=== PATIENT | male | born 1945 | race Caucasian/White ===

== ENCOUNTER 2019-04-30 17:37 | Emergency (ER) | payer MEDICARE, OTHER ==
--- NOTE | 2019-04-30 17:45 | ERPHSYRPT ---
- History of Present Illness Time Seen by Provider: 04/30/19 17:45 Source: patient Exam Limitations: no limitations Physician History: The patient is a 73-year-old male who presents with a chief complaint of hypertension. He reportedly has a blood pressure that runs in the 140s over 90s per his report but he hasn't checked his blood pressure and some time. He states that he decided to check his blood pressure today and was getting records in the 160s mmHg systolic and 180s mmHg systolic and decided to come to the emergency department for further evaluation and management. He is otherwise asymptomatic. He denies chest pain, shortness of breath, headache, blurred vision, changes in his visual acuity, abdominal pain, gross hematuria, back pain, syncope. He reportedly has been taking some ibuprofen intermittently for generalized aches and pains but hasn't taken any today. He endorsed that he drinks Diet Coke and he denies any additional over-the- counter medicine use to include Sudafed. Timing/Duration: today Associated Symptoms: denies symptoms, No nausea, No vomiting, No shortness of breath, No chest pain Allergies/Adverse Reactions: No Known Drug Allergies Allergy (Verified 04/30/19 18:02) Home Medications: No Reportable Medications [No Reported Medications] 04/30/19 [History] - Review of Systems Constitutional: No Symptoms Eyes: No Symptoms Ears, Nose, & Throat: No Symptoms Respiratory: No Symptoms Cardiac: Other (Elevated blood pressure reading) Abdominal/Gastrointestinal: No Symptoms Genitourinary Symptoms: No Symptoms Musculoskeletal: No Symptoms Skin: No Symptoms Neurological: No Symptoms Psychological: No Symptoms Endocrine: No Symptoms All Other Systems: Reviewed and Negative - Nursing Vital Signs Nursing Vital Signs: Initial Vital Signs Temperature 98.1 F 04/30/19 17:49 Pulse Rate 97 H 04/30/19 17:49 Respiratory Rate 14 04/30/19 17:49 Blood Pressure 184/90 04/30/19 17:49 O2 Sat by Pulse Oximetry 98 04/30/19 17:49 - Physical Exam General Appearance: no apparent distress, alert Eye Exam: PERRL/EOMI, No photophobia, No EOM palsy/anisocoria Ears, Nose, Throat Exam: normal ENT inspection, pharynx normal, No pharyngeal erythema, No tonsillar exudate Neck Exam: normal inspection, supple, No JVD Respiratory Exam: normal breath sounds, lungs clear, airway intact, No chest tenderness, No respiratory distress, No diminished breath sounds, No accessory muscle use Cardiovascular Exam: regular rate/rhythm, normal heart sounds, normal peripheral pulses, capillary refill <2 sec, other (Trace bilateral bilateral lower extremity edema), No murmur, No friction rub, No gallop Gastrointestinal/Abdomen Exam: soft, No tenderness, No distention, No mass, No pulsatile mass, No rebound, No bruit Back Exam: normal inspection, No vertebral tenderness Extremity Exam: normal inspection Neurologic Exam: alert, oriented x 3, cooperative, other (Seems anxious) Skin Exam: normal color SpO2 Interpretation: normal O2 Delivery: Room Air - Course Nursing assessment & vital signs reviewed: Yes - Progress Progress: unchanged Counseled pt/family regarding: diagnosis, need for follow-up - Departure Departure Disposition: Home Clinical Impression: Elevated blood pressure reading Condition: Stable Critical Care Time: No Referrals: [facility] [NON-STAFF PHY W/O PRIVILEGES] - Instructions: Blood Pressure Testing and Measurement, Checking Your Blood Pressure at Home Additional Instructions: Please follow-up with a primary care provider to have your blood pressure rechecked in the next 1-2 weeks. Please keep a log or your recordings and please check a resting blood pressure in the morning. Please avoid caffeine use. Plan of Treatment: Nontoxic in appearance. The patient presents with asymptomatic hypertension/ elevated blood pressure reading. His exam is relatively benign. The patient was provided reassurance and instructed to start taking daily resting blood pressure recordings, specifically in the morning upon awakening and keeping a log of these recordings to bring to a f/u appointment with a PCP. He is also instructed tocall is appointment to be seen I do in the next one to 2 weeks if able to have his blood pressure recording retake at the time of and have a primary care provider decide how to manage such recording. In the meantime, I instructed him to limit his caffeine use and to no longer take ibuprofen and to take [id number] Tylenol for generalized aches and pains. He agreed with verbally understands the discharge plan.
[2019-04-30 18:18] VITALS: BP 185/97; PULSE 80; O2SAT 96
== END 2019-04-30 18:18 | disposition home or self-care (01) ==
LOC: ED 17:37
DX: R03.0 Elevated blood-pressure reading, without diagnosis of hypertension (principal); I10 Essential (primary) hypertension
CPT/HCPCS: 99283

== ENCOUNTER 2020-05-01 23:06 | Observation (INO) | payer MEDICARE, OTHER ==
[2020-05-01] MEDS ORDERED: BABY ASPIRIN 81 MG CHEW PO ONE (23:11)
[2020-05-01] MEDS ORDERED: Sodium Chloride 0.9% 1000 ML 1,000 ML IV STA (23:11)
[2020-05-01] MEDS ORDERED: Zofran 4 MG/2 ML VIAL IV ONE (23:11)
--- NOTE | 2020-05-01 23:25 | ERPHSYRPT ---
- History of Present Illness Time Seen by Provider: 05/01/20 23:08 Source: patient Exam Limitations: no limitations Physician History: Patient is here for an episode of near syncope just prior to arrival. Patient states that he was walking around his house. He had sudden onset of lightheadedness, dizziness, flushing feeling. States he felt he was in a pass out. He sat down and had some improvement. He has no chest pain, fever, nausea, vomiting. No shortness of breath, COVID-19 exposures. Location: generalized Quality: light headedness Radiation: none Severity: moderate Duration: just BEATER LEAD Timing: suddenly Modifying factors/associated signs and symptoms: none tried, improved with rest Timing/Duration: today Severity: moderate Modifying Factors: Improves With: movement Associated Symptoms: other Allergies/Adverse Reactions: No Known Drug Allergies Allergy (Verified 05/01/20 23:29) Home Medications: Aspirin EC 81 mg [Ecotrin 81 mg] 81 mg PO DAILY 05/01/20 [History] Metoprolol Succinate 50 mg [Toprol Xl 50 MG] 50 mg PO HS 05/01/20 [History] Simvastatin 10 mg [Zocor 10MG] 10 mg PO QPM 05/01/20 [History] - Review of Systems Constitutional: Other (near syncope, feeling flushed), No Fever, No Chills Eyes: No Symptoms Ears, Nose, & Throat: No Symptoms Respiratory: No Cough, No Dyspnea Cardiac: No Chest Pain, No Edema, No Syncope Abdominal/Gastrointestinal: No Abdominal Pain, No Nausea, No Vomiting, No Diarrhea Genitourinary Symptoms: No Dysuria Musculoskeletal: No Back Pain, No Neck Pain Skin: No Rash Neurological: No Dizziness, No Focal Weakness, No Sensory Changes Psychological: No Symptoms Endocrine: No Symptoms All Other Systems: Reviewed and Negative - Past Medical History Pertinent Past Medical History: Yes GI Medical History: Hernia - Past Surgical History Past Surgical History: Yes Gastrointestinal: Hernia Repair - Social History Smoking Status: Never smoker Exposure to second hand smoke: No Drug Use: none Patient Lives Alone: Yes - Nursing Vital Signs Nursing Vital Signs: Initial Vital Signs Temperature 98.1 F 05/01/20 23:08 Pulse Rate 92 H 05/01/20 23:08 Respiratory Rate 16 05/01/20 23:08 Blood Pressure 181/90 05/01/20 23:08 O2 Sat by Pulse Oximetry 98 05/01/20 23:08 Pain Scale Pain Intensity 0 - Physical Exam General Appearance: no apparent distress, alert Eye Exam: PERRL/EOMI, eyes nml inspection Ears, Nose, Throat Exam: normal ENT inspection, TMs normal, pharynx normal, moist mucous membranes Neck Exam: normal inspection, non-tender, supple, full range of motion Respiratory Exam: normal breath sounds, lungs clear, No respiratory distress Cardiovascular Exam: regular rate/rhythm, normal heart sounds, normal peripheral pulses Gastrointestinal/Abdomen Exam: soft, normal bowel sounds, No tenderness, No mass Back Exam: normal inspection, normal range of motion, No CVA tenderness, No vertebral tenderness Extremity Exam: normal inspection, normal range of motion, pelvis stable Neurologic Exam: alert, oriented x 3, cooperative, normal mood/affect, nml cere bellar function, nml station & gait, sensation nml, No motor deficits Skin Exam: normal color, warm, dry, No rash Lymphatic Exam: No adenopathy SpO2 Interpretation: normal Comments: 05/01/20 23:24 Motor: There is no pronator drift of out-stretched arms. Muscle bulk and tone are normal. Strength is full bilaterally. Reflexes: Reflexes are 2+ and symmetric at the biceps, triceps, knees, and an kles. Plantar responses are flexor. Sensory: Light touch sense are intact in bilateral upper and lower extremities. There is no sign of neglect. Coordination: Rapid alternating movements are intact. There is no dysmetria on [id number] and [id number]. There are no abnormal or extraneous movements. Romberg is absent. Gait/Stance: Posture is normal. Gait is steady with normal steps, base, arm swing, and turning. Heel and toe walking are normal. Tandem gait is normal. - Course Nursing assessment & vital signs reviewed: Yes EKG Interpreted by Me: Sinus Rhythm Ordered Tests: Active Orders 24 hr Category Date Time Status Bedrest with BRP/BSC ROUTINE Activity 05/02/20 00:38 Active Rum Processing Operator STAT Care 05/01/20 23:12 Active Code Status Order ROUTINE Care 05/02/20 00:38 Active EKG-ER Only STAT Care 05/01/20 23:11 Active IV Care Q6H Care 05/02/20 00:38 Active IV Insertion STAT Care 05/01/20 23:11 Active Implement Chest Pain Pathway ROUTINE Care 05/02/20 00:[address] in Observation ROUTINE Care 05/02/20 00:38 Active Palomo Gallardo ROUTINE Care 05/02/20 00:38 Active Weight,Daily 0600 Care 05/02/20 00:38 Active House Regular Diet Diet 05/02/20 Breakfast Active CHEST 1 VIEW (PORTABLE) Stat Exams 05/01/20 23:11 Taken CBC W DIFF Stat Lab 05/01/20 23:15 Completed CMP Stat Lab 05/01/20 23:15 Completed LIPASE Stat Lab 05/01/20 23:15 Completed LIPID PROFILE AM.LAB Lab 05/02/20 04:00 Ordered NT PRO BNP Stat Lab 05/01/20 23:15 Completed POCT GLUCOSE Stat Lab 05/01/20 23:12 Completed TROPONIN Q3H Lab 05/01/20 23:15 Completed TROPONIN Q3H Lab 05/02/20 02:15 Ordered TROPONIN Q3H Lab 05/02/20 05:15 Ordered TROPONIN Q3H Lab 05/02/20 08:15 Ordered TROPONIN Q3H Lab 05/02/20 11:15 Ordered UA W/RFX UR CULTURE Stat Lab 05/01/20 23:48 Ordered EKG Q8HX2,QAMX3,PRN RT 05/02/20 00:38 Active Pulse Oximetry Q4H RT 05/02/20 00:38 Active Medication Summary Generic Name Dose Route Start Last Admin Trade Name Freq PRN Reason Stop Dose Admin Acetaminophen 650 mg 05/02/20 00:38 Tylenol 325 Mg PO 06/01/20 00:37 Q4H PRN PRN PAIN AND/OR FEVER Al Hydrox/Mg Hydrox/Simethicone 30 ml 05/02/20 00:38 Maalox Es 30 Ml Unit Dose PO 06/01/20 00:37 Q4H PRN PRN INDIGESTION Magnesium Hydroxide 30 - 60 ml 05/02/20 00:38 Milk Of Magnesia 30 Ml PO 06/01/20 00:37 QDP PRN CONSTIPATION Ondansetron HCl 4 mg 05/02/20 00:38 Zofran 4 Mg/2 Ml Vial IV 06/01/20 00:37 Q4H PRN PRN NAUSEA/VOMITING Senna/Docusate Sodium 2 udtab 05/02/20 00:38 Senokot-S Tablet PO 06/01/20 00:37 BID PRN PRN CONSTIPATION Discontinued Medications Generic Name Dose Route Start Last Admin Trade Name Aurelia PRN Reason Stop Dose Admin Aspirin 324 mg 05/01/20 23:11 05/01/20 23:38 Baby Aspirin 81 Mg Chew PO 05/01/20 23:12 324 mg STAT ONE Administration Aspirin Confirm 05/01/20 23:36 Baby Aspirin 81 Mg Chew Administered 05/01/20 23:37 Dose 324 mg .ROUTE .STK-MED ONE Sodium Chloride 1,000 mls @ 999 mls/hr 05/01/20 23:11 05/01/20 23:38 Sodium Chloride 0.9% 1000 Ml IV 05/02/20 00:11 999 mls/hr .Q1H1M STA Administration Sodium Chloride Confirm 05/01/20 23:36 Sodium Chloride 0.9% 1000 Ml Administered 05/01/20 23:37 Dose 1,000 mls @ ud .ROUTE .STK-MED ONE Ondansetron HCl 4 mg 05/01/20 23:11 05/01/20 23:38 Zofran 4 Mg/2 Ml Vial IV 05/01/20 23:12 4 mg STAT ONE Administration Ondansetron HCl Confirm 05/01/20 23:36 Zofran 4 Mg/2 Ml Vial Administered 05/01/20 23:37 Dose 4 mg .ROUTE .STK-MED ONE Lab/Rad Data: Laboratory Result Diagrams 05/01/20 23:15 05/01/20 23:15 Laboratory Results 05/01/20 05/01/20 05/01/20 Range/Units 23:15 23:15 23:15 WBC (4.0-10.5) K/mm3 RBC (4.1-5.6) M/mm3 Hgb (12.5-18.0) gm/dl Hct (42-50) % MCV (78-100) fl MCH (26-32) pg MCHC (32-36) g/dl RDW (11.5-14.0) % Plt Count (150-450) K/mm3 MPV (7.5-11.0) fl Gran % (36.0-66.0) % Eos # (Auto) (0-0.5) Absolute Lymphs (auto) (1.0-4.6) Absolute Monos (auto) (0.0-1.3) Lymphocytes % (24.0-44.0) % Monocytes % (0.0-12.0) % Eosinophils % (0.00-5.0) % Basophils % (0.0-0.4) % Absolute Granulocytes (1.4-6.9) Basophils # (0-0.4) Sodium 137 (137-145) mmol/L Potassium 4.0 (3.5-5.1) mmol/L Chloride 104 (98-107) mmol/L Carbon Dioxide 26 (22-30) mmol/L Anion Gap 11.8 (5-15) MEQ/L BUN 15 (9-20) mg/dL Creatinine 0.88 (0.66-1.25) mg/dL Estimated GFR > 60.0 ML/MIN Glucose 156 H (74-106) mg/dL POC Glucometer (74 to 106) mg/dL Calcium 9.1 (8.4-10.2) mg/dL Total Bilirubin 0.40 (0.2-1.3) mg/dL AST 27 (17-59) U/L ALT 18 (0-50) U/L Alkaline Phosphatase 78 (38-126) U/L Troponin I < 0.012 (0.000-0.034) ng/mL NT-Pro-B Natriuret Pep 121 (0-1800) pg/mL Serum Total Protein 7.4 (6.3-8.2) g/dL Albumin 4.3 (3.5-5.0) g/dL Lipase 80 (23-300) U/L 05/01/20 05/01/20 Range/Units 23:15 23:12 WBC 8.5 (4.0-10.5) K/mm3 RBC 4.13 (4.1-5.6) M/mm3 Hgb 12.9 (12.5-18.0) gm/dl Hct 40.8 L (42-50) % MCV 98.8 (78-100) fl MCH 31.2 (26-32) pg MCHC 31.6 L (32-36) g/dl RDW 12.9 (11.5-14.0) % Plt Count 200 (150-450) K/mm3 MPV 10.7 (7.5-11.0) fl Gran % 57.6 (36.0-66.0) % Eos # (Auto) 0.22 (0-0.5) Absolute Lymphs (auto) 2.57 (1.0-4.6) Absolute Monos (auto) 0.78 (0.0-1.3) Lymphocytes % 30.2 (24.0-44.0) % Monocytes % 9.2 (0.0-12.0) % Eosinophils % 2.6 (0.00-5.0) % Basophils % 0.4 (0.0-0.4) % Absolute Granulocytes 4.91 (1.4-6.9) Basophils # 0.03 (0-0.4) Sodium (137-145) mmol/L Potassium (3.5-5.1) mmol/L Chloride (98-107) mmol/L Carbon Dioxide (22-30) mmol/L Anion Gap (5-15) MEQ/L BUN (9-20) mg/dL Creatinine (0.66-1.25) mg/dL Estimated GFR ML/MIN Glucose (74-106) mg/dL POC Glucometer 120 H (74 to 106) mg/dL Calcium (8.4-10.2) mg/dL Total Bilirubin (0.2-1.3) mg/dL AST (17-59) U/L ALT (0-50) U/L Alkaline Phosphatase (38-126) U/L Troponin I (0.000-0.034) ng/mL NT-Pro-B Natriuret Pep (0-1800) pg/mL Serum Total Protein (6.3-8.2) g/dL Albumin (3.5-5.0) g/dL Lipase (23-300) U/L - Progress Progress: improved Progress Note: 05/01/20 23:24 Differential diagnosis includes STEMI, pneumonia, infection, fever, pancreatitis, electrolyte abnormality. -We will obtain basic labs, troponin, EKG, fluids, Zofran. 05/02/20 00:41 Lab work-up largely unremarkable. Patient will need be admitted for cardiac rule out, telemetry. Discussed with patient he states his understanding. Patient to be admitted. After reviewing labs, appropriate imaging, discussion with patient and family. We decided the patient should be admitted to the hospital. I called the inpatient team discussed history, physical and results with them in detail. We decided on the plan of action and admission to [facility]. We agreed on appropriate consults and who would call them. Discussed with : Jasper Counseled pt/family regarding: lab results, diagnosis, need for follow-up, rad results - Departure Departure Disposition: Observation Clinical Impression: Near syncope Condition: Stable Critical Care Time: No Referrals: OSVALDO GILL [Primary Care Provider] -
[2020-05-01 23:31] LABS: Absolute Neutrophil Ct (ANC) 4.91 (1.4-6.9); BASOPHIL % 0.4 % (0.0-0.4); Basophil (Absolute #) 0.03 (0-0.4); Eosinophil % 2.6 % (0.00-5.0); Eosinophil (Absolute #) 0.22 (0-0.5); Hematocrit 40.8 % (42-50); Hemoglobin 12.9 gm/dl (12.5-18.0); Lymphocyte (Absolute #) 2.57 (1.0-4.6); Lymphocytes % 30.2 % (24.0-44.0); Mean Cell Volume 98.8 fl (78-100); Mean Corpuscular Hemoglobin 31.2 pg (26-32); Mean Corpuscular Hgb Concent. 31.6 g/dl (32-36); Mean Platelet Volume 10.7 fl (7.5-11.0); Monocyte (Absolute #) 0.78 (0.0-1.3); Monocytes % 9.2 % (0.0-12.0); Neutrophil % 57.6 % (36.0-66.0); Platelet Count 200 K/mm3 (150-450); Red Blood Count 4.13 M/mm3 (4.1-5.6); Red Cell Distribution Width 12.9 % (11.5-14.0); White Blood Count 8.5 K/mm3 (4.0-10.5)
[2020-05-01] MEDS ORDERED: BABY ASPIRIN 81 MG CHEW ONE (23:36)
[2020-05-01] MEDS ORDERED: Zofran 4 MG/2 ML VIAL ONE (23:36)
[2020-05-01] MEDS ORDERED: Sodium Chloride 0.9% 1000 ML 1,000 ML ONE (23:36)
[2020-05-01 23:50] LABS: ALBUMIN 4.3 g/dL (3.5-5.0); ALKALINE PHOSPHATASE 78 U/L (38-126); ANION GAP 11.8 MEQ/L (5-15); BLOOD UREA NITROGEN 15 mg/dL (9-20); CHLORIDE 104 mmol/L (98-107); Calcium 9.1 mg/dL (8.4-10.2); Carbon Dioxide 26 mmol/L (22-30); Creatinine 1 0.88 mg/dL (0.66-1.25); EST GLOMERULAR FILTRATION RATE > 60.0 ML/MIN; Glucose 156 mg/dL (74-106); NT PRO BNP 121 pg/mL (0-1800); SGOT/AST 27 U/L (17-59); SGPT/ALT 18 U/L (0-50); SODIUM 137 mmol/L (137-145); Total Protein 7.4 g/dL (6.3-8.2)
[2020-05-02] MEDS ORDERED: MILK OF MAGNESIA 30 ML PO PRN (00:38)
[2020-05-02] MEDS ORDERED: TYLENOL 325 MG PO PRN (00:38)
[2020-05-02] MEDS ORDERED: Senokot-S Tablet PO PRN (00:38)
[2020-05-02] MEDS ORDERED: MAALOX ES 30 ML UNIT DOSE PO PRN (00:38)
[2020-05-02] MEDS ORDERED: Zofran 4 MG/2 ML VIAL IV PRN (00:38)
[2020-05-02 01:01] LABS: Appearance CLEAR (CLEAR); Bilirubin NEGATIVE (NEGATIVE); Blood NEGATIVE Ery/ul (0-5); Glucose NEGATIVE (NEGATIVE); Ketones NEGATIVE (NEGATIVE); Leukocyte Esterase NEGATIVE (NEGATIVE); Mucus SLIGHT /HPF (NEGATIVE); Nitrite NEGATIVE (NEGATIVE); Protein,Urine Dip NEGATIVE (Negative); RBC 0-2 /HPF (0-2); Specific Gravity 1.016 (1.005-1.025); Urobilinogen NEGATIVE mg/dL (0-1)
[2020-05-02 01:02] LABS: Non-Squamous Epithelial Cells RARE /HPF (FEW)
[2020-05-02 07:54] VITALS: BP 134/67; PULSE 88; O2SAT 95
--- NOTE | 2020-05-02 07:58 | XRAY ---
Indication: Near syncope. Comparison: None Portable chest demonstrates normal heart and lungs. Bony thorax intact with mild degenerative changes.
--- NOTE | 2020-05-02 10:23 | PCM.SSS ---
History of Present Illness - Chief Complaint Chief Complaint: deconditioning r/t CHF, near syncope History of Present Illness: is a 74 year old male who developed dizziness and feeling faint suddenly last night, he sushil to turn off the lights to go to bed and had a dizzy/faint sensation which he has never had before. He has not had any chest pain, no shortness of breath, no syncope, he sat down and symptoms resolved after he called for ambulance. He has no complaints at all today, feels normal and well. He has no numbness, tingling, weakness or paresthesias. Has no prior cardiac history or history of CVA/TIA etc. he does take a baby aspirin daily in addition to his bp and cholesterol meds. he would like to go home today. - Review of Systems Constitutional: No Fever, No Chills Cardiac: No Chest Pain, No Syncope Abdominal/Gastrointestinal: No Abdominal Pain, No Nausea, No Vomiting, No Diarrhea Genitourinary Symptoms: No Dysuria Neurological: Dizziness, No Focal Weakness, No Gait Changes, No Headache, No Paralysis, No Parasthesia, No Sensory Changes, No Speech Changes Psychological: No Symptoms All Other Systems: Reviewed and Negative Medications & Allergies Home Medications: Home Medication List Aspirin EC 81 mg [Ecotrin 81 mg] 81 mg PO DAILY 05/01/20 [History Confirmed 05/02/20] Metoprolol Succinate 50 mg [Toprol Xl 50 MG] 50 mg PO HS 05/01/20 [History Confirmed 05/02/20] Simvastatin 10 mg [Zocor 10MG] 10 mg PO QPM 05/01/20 [History Confirmed 05/02/20] Allergies/Adverse Reactions: Allergies Allergy/AdvReac Type Severity Reaction Status Date / Time No Known Drug Allergies Allergy Verified 05/02/20 01:57 - Past Medical History Past Medical History: Yes Neurological History: No Pertinent History ENT History: No Pertinent History Cardiac History: High Cholesterol, Hypertension Respiratory History: No Pertinent History Endocrine Medical History: No Pertinent History Musculoskelatal History: No Pertinent History GI Medical History: Hernia History: No Pertinent History Pyscho-Social History: No Pertinent History Male Reproductive Disorders: No Pertinent History Comment: skin cancer on the top of one of ears and 5 spots removed on face - Past Surgical History Past Surgical History: Yes Neuro Surgical History: No Pertinent History Cardiac History: No Pertinent History Respiratory Surgery: No Pertinent History GI Surgical History: Hernia Repair Genitourinary Surgical Hx: No Pertinent History Musculskeletal Surgical Hx: No Pertinent History Male Surgical History: No Pertinent History Other Surgical History: skin cancer removed from face - Social History Smoking Status: Never smoker Exposure to second hand smoke: No Alcohol: None Drug Use: none - Physical Exam Vital Signs: Vital Signs - 24 hr Temp Pulse Resp BP Pulse Ox 05/02/20 07:53 99.5 F 88 16 134/67 95 05/02/20 04:00 20 05/02/20 02:20 98.5 F 106 H 20 184/91 96 05/02/20 01:50 98.5 F 106 H 20 184/91 96 05/02/20 01:00 96 H 18 170/77 96 05/02/20 00:07 93 H 20 170/81 98 05/01/20 23:08 98.1 F 92 H 16 181/90 98 General Appearance: no apparent distress, alert Neurologic Exam: alert, oriented x 3, cooperative, normal mood/affect, nml cerebellar function, nml station & gait, sensation nml, No motor deficits Eye Exam: PERRL/EOMI, eyes nml inspection Respiratory Exam: normal breath sounds, lungs clear, No respiratory distress Cardiovascular Exam: regular rate/rhythm, normal heart sounds, normal peripheral pulses Gastrointestinal/Abdomen Exam: soft, normal bowel sounds, No tenderness, No mass Extremity Exam: normal inspection, normal range of motion, pelvis stable Skin Exam: normal color, warm, dry, No rash Results - Labs Lab/Micro Results: Lab Results-Last 24 Hours 05/01/20 05/01/20 05/01/20 Range/Units 23:12 23:15 23:15 WBC 8.5 (4.0-10.5) K/mm3 RBC 4.13 (4.1-5.6) M/mm3 Hgb 12.9 (12.5-18.0) gm/dl Hct 40.8 L (42-50) % MCV 98.8 (78-100) fl MCH 31.2 (26-32) pg MCHC 31.6 L (32-36) g/dl RDW 12.9 (11.5-14.0) % Plt Count 200 (150-450) K/mm3 MPV 10.7 (7.5-11.0) fl Gran % 57.6 (36.0-66.0) % Eos # (Auto) 0.22 (0-0.5) Absolute Lymphs (auto) 2.57 (1.0-4.6) Absolute Monos (auto) 0.78 (0.0-1.3) Lymphocytes % 30.2 (24.0-44.0) % Monocytes % 9.2 (0.0-12.0) % Eosinophils % 2.6 (0.00-5.0) % Basophils % 0.4 (0.0-0.4) % Absolute Granulocytes 4.91 (1.4-6.9) Basophils # 0.03 (0-0.4) Sodium 137 (137-145) mmol/L Potassium 4.0 (3.5-5.1) mmol/L Chloride 104 (98-107) mmol/L Carbon Dioxide 26 (22-30) mmol/L Anion Gap 11.8 (5-15) MEQ/L BUN 15 (9-20) mg/dL Creatinine 0.88 (0.66-1.25) mg/dL Estimated GFR > 60.0 ML/MIN Glucose 156 H (74-106) mg/dL POC Glucometer 120 H (74 to 106) mg/dL Calcium 9.1 (8.4-10.2) mg/dL Total Bilirubin 0.40 (0.2-1.3) mg/dL AST 27 (17-59) U/L ALT 18 (0-50) U/L Alkaline Phosphatase 78 (38-126) U/L Troponin I (0.000-0.034) ng/mL NT-Pro-B Natriuret Pep 121 (0-1800) pg/mL Serum Total Protein 7.4 (6.3-8.2) g/dL Albumin 4.3 (3.5-5.0) g/dL Triglycerides (30-150) mg/dL Cholesterol (50-200) mg/dL LDL Cholesterol (30-100) mg/dL HDL Cholesterol (40-60) mg/dL Heart Disease Risk Ratio Lipase (23-300) U/L Urine Color (YELLOW) Urine Appearance (CLEAR) Urine pH (5-6) Ur Specific [place] (1.005-1.025) Urine Protein (Negative) Urine Ketones (NEGATIVE) Urine Blood (0-5) Minh/ul Urine Nitrite (NEGATIVE) Urine Bilirubin (NEGATIVE) Urine Urobilinogen (0-1) mg/dL Ur Leukocyte Esterase (NEGATIVE) Urine WBC (Auto) (0-5) /HPF Urine RBC (Auto) (0-2) /HPF U Epithel Cells (Auto) (FEW) /HPF Urine Bacteria (Auto) (NEGATIVE) /HPF U Non-Squamous Epi Cells (FEW) /HPF Urine Mucus (Auto) (NEGATIVE) /HPF Urine Culture Reflexed (NO) Urine Glucose (NEGATIVE) mg/dL 05/01/20 05/01/20 05/02/20 Range/Units 23:15 23:15 00:35 WBC (4.0-10.5) K/mm3 RBC (4.1-5.6) M/mm3 Hgb (12.5-18.0) gm/dl Hct (42-50) % MCV (78-100) fl MCH (26-32) pg MCHC (32-36) g/dl RDW (11.5-14.0) % Plt Count (150-450) K/mm3 MPV (7.5-11.0) fl Gran % (36.0-66.0) % Eos # (Auto) (0-0.5) Absolute Lymphs (auto) (1.0-4.6) Absolute Monos (auto) (0.0-1.3) Lymphocytes % (24.0-44.0) % Monocytes % (0.0-12.0) % Eosinophils % (0.00-5.0) % Basophils % (0.0-0.4) % Absolute Granulocytes (1.4-6.9) Basophils # (0-0.4) Sodium (137-145) mmol/L Potassium (3.5-5.1) mmol/L Chloride (98-107) mmol/L Carbon Dioxide (22-30) mmol/L Anion Gap (5-15) MEQ/L BUN (9-20) mg/dL Creatinine (0.66-1.25) mg/dL Estimated GFR ML/MIN Glucose (74-106) mg/dL POC Glucometer (74 to 106) mg/dL Calcium (8.4-10.2) mg/dL Total Bilirubin (0.2-1.3) mg/dL AST (17-59) U/L ALT (0-50) U/L Alkaline Phosphatase (38-126) U/L Troponin I < 0.012 (0.000-0.034) ng/mL NT-Pro-B Natriuret Pep (0-1800) pg/mL Serum Total Protein (6.3-8.2) g/dL Albumin (3.5-5.0) g/dL Triglycerides (30-150) mg/dL Cholesterol (50-200) mg/dL LDL Cholesterol (30-100) mg/dL HDL Cholesterol (40-60) mg/dL Heart Disease Risk Ratio Lipase 80 (23-300) U/L Urine Color YELLOW (YELLOW) Urine Appearance CLEAR (CLEAR) Urine pH 5.0 (5-6) Ur Specific [place] 1.016 (1.005-1.025) Urine Protein NEGATIVE (Negative) Urine Ketones NEGATIVE (NEGATIVE) Urine Blood NEGATIVE (0-5) Minh/ul Urine Nitrite NEGATIVE (NEGATIVE) Urine Bilirubin NEGATIVE (NEGATIVE) Urine Urobilinogen NEGATIVE (0-1) mg/dL Ur Leukocyte Esterase NEGATIVE (NEGATIVE) Urine WBC (Auto) NONE (0-5) /HPF Urine RBC (Auto) 0-2 (0-2) /HPF U Epithel Cells (Auto) NONE (FEW) /HPF Urine Bacteria (Auto) NONE (NEGATIVE) /HPF U Non-Squamous Epi Cells RARE (FEW) /HPF Urine Mucus (Auto) SLIGHT (NEGATIVE) /HPF Urine Culture Reflexed NO (NO) Urine Glucose NEGATIVE (NEGATIVE) mg/dL 05/02/20 05/02/20 05/02/20 Range/Units 02:20 05:30 05:30 WBC (4.0-10.5) K/mm3 RBC (4.1-5.6) M/mm3 Hgb (12.5-18.0) gm/dl Hct (42-50) % MCV (78-100) fl MCH (26-32) pg MCHC (32-36) g/dl RDW (11.5-14.0) % Plt Count (150-450) K/mm3 MPV (7.5-11.0) fl Gran % (36.0-66.0) % Eos # (Auto) (0-0.5) Absolute Lymphs (auto) (1.0-4.6) Absolute Monos (auto) (0.0-1.3) Lymphocytes % (24.0-44.0) % Monocytes % (0.0-12.0) % Eosinophils % (0.00-5.0) % Basophils % (0.0-0.4) % Absolute Granulocytes (1.4-6.9) Basophils # (0-0.4) Sodium (137-145) mmol/L Potassium (3.5-5.1) mmol/L Chloride (98-107) mmol/L Carbon Dioxide (22-30) mmol/L Anion Gap (5-15) MEQ/L BUN (9-20) mg/dL Creatinine (0.66-1.25) mg/dL Estimated GFR ML/MIN Glucose (74-106) mg/dL POC Glucometer (74 to 106) mg/dL Calcium (8.4-10.2) mg/dL Total Bilirubin (0.2-1.3) mg/dL AST (17-59) U/L ALT (0-50) U/L Alkaline Phosphatase (38-126) U/L Troponin I < 0.012 < 0.012 (0.000-0.034) ng/mL NT-Pro-B Natriuret Pep (0-1800) pg/mL Serum Total Protein (6.3-8.2) g/dL Albumin (3.5-5.0) g/dL Triglycerides 126 (30-150) mg/dL Cholesterol 126 (50-200) mg/dL LDL Cholesterol 67 (30-100) mg/dL HDL Cholesterol 41 (40-60) mg/dL Heart Disease Risk Ratio 3.0 Lipase (23-300) U/L Urine Color (YELLOW) Urine Appearance (CLEAR) Urine pH (5-6) Ur Specific [place] (1.005-1.025) Urine Protein (Negative) Urine Ketones (NEGATIVE) Urine Blood (0-5) [place]ul Urine Nitrite (NEGATIVE) Urine Bilirubin (NEGATIVE) Urine Urobilinogen (0-1) mg/dL Ur Leukocyte Esterase (NEGATIVE) Urine WBC (Auto) (0-5) /HPF Urine RBC (Auto) (0-2) /HPF U Epithel Cells (Auto) (FEW) /HPF Urine Bacteria (Auto) (NEGATIVE) /HPF U Non-Squamous Epi Cells (FEW) /HPF Urine Mucus (Auto) (NEGATIVE) /HPF Urine Culture Reflexed (NO) Urine Glucose (NEGATIVE) mg/dL 05/02/20 Range/Units 08:20 WBC (4.0-10.5) K/mm3 RBC (4.1-5.6) M/mm3 Hgb (12.5-18.0) gm/dl Hct (42-50) % MCV (78-100) fl MCH (26-32) pg MCHC (32-36) g/dl RDW (11.5-14.0) % Plt Count (150-450) K/mm3 MPV (7.5-11.0) fl Gran % (36.0-66.0) % Eos # (Auto) (0-0.5) Absolute Lymphs (auto) (1.0-4.6) Absolute Monos (auto) (0.0-1.3) Lymphocytes % (24.0-44.0) % Monocytes % (0.0-12.0) % Eosinophils % (0.00-5.0) % Basophils % (0.0-0.4) % Absolute Granulocytes (1.4-6.9) Basophils # (0-0.4) Sodium (137-145) mmol/L Potassium (3.5-5.1) mmol/L Chloride (98-107) mmol/L Carbon Dioxide (22-30) mmol/L Anion Gap (5-15) MEQ/L BUN (9-20) mg/dL Creatinine (0.66-1.25) mg/dL Estimated GFR ML/MIN Glucose (74-106) mg/dL POC Glucometer (74 to 106) mg/dL Calcium (8.4-10.2) mg/dL Total Bilirubin (0.2-1.3) mg/dL AST (17-59) U/L ALT (0-50) U/L Alkaline Phosphatase (38-126) U/L Troponin I < 0.012 (0.000-0.034) ng/mL NT-Pro-B Natriuret Pep (0-1800) pg/mL Serum Total Protein (6.3-8.2) g/dL Albumin (3.5-5.0) g/dL Triglycerides (30-150) mg/dL Cholesterol (50-200) mg/dL LDL Cholesterol (30-100) mg/dL HDL Cholesterol (40-60) mg/dL Heart Disease Risk Ratio Lipase (23-300) U/L Urine Color (YELLOW) Urine Appearance (CLEAR) Urine pH (5-6) Ur Specific [place] (1.005-1.025) Urine Protein (Negative) Urine Ketones (NEGATIVE) Urine Blood (0-5) Minh/ul Urine Nitrite (NEGATIVE) Urine Bilirubin (NEGATIVE) Urine Urobilinogen (0-1) mg/dL Ur Leukocyte Esterase (NEGATIVE) Urine WBC (Auto) (0-5) /HPF Urine RBC (Auto) (0-2) /HPF U Epithel Cells (Auto) (FEW) /HPF Urine Bacteria (Auto) (NEGATIVE) /HPF U Non-Squamous Epi Cells (FEW) /HPF Urine Mucus (Auto) (NEGATIVE) /HPF Urine Culture Reflexed (NO) Urine Glucose (NEGATIVE) mg/dL - Radiology Impressions Radiology Exams & Impressions: Radiology Procedures Category Date Time Status CHEST 1 VIEW (PORTABLE) Stat Exams 05/01/20 23:11 Completed - Other Procedures and Tests Respiratory Therapy 05/03/20 05:00 EKG ONCE 05/04/20 05:00 EKG ONCE 05/05/20 05:00 EKG ONCE Assessment/Plan (1) Near syncope Current Visit: Yes Status: Acute Assessment & Plan: IN ruled out, nothing abnormal on neuro exam and has no symptoms since admission. continue current meds including 81mg asa and will f/u with Dr Gill PCP in the next week (2) Elevated blood pressure reading Current Visit: No Status: Acute Assessment & Plan: resolved, bp well controlled currently Code(s): R03.0 - ELEVATED BLOOD-PRESSURE READING, W/O DIAGNOSIS OF HTN Hospital Summary - Vitals & Intake/Output Vital Signs: Vital Signs Temperature 99.5 F 05/02/20 07:53 Pulse Rate 88 05/02/20 07:53 Respiratory Rate 16 05/02/20 07:53 Blood Pressure 134/67 05/02/20 07:53 O2 Sat by Pulse Oximetry 95 05/02/20 07:53 Intake & Output: Intake & Output 04/29/20 04/30/20 05/01/20 05/02/20 11:59 11:59 11:59 11:59 Output Total 375 Balance -375 Weight 108.8 kg - Lab Result Diagrams: 05/01/20 23:15 05/01/20 23:15 Lab Results-Last 24 Hrs: Lab Results-Last 24 Hours 05/01/20 05/01/20 05/01/20 Range/Units 23:12 23:15 23:15 WBC 8.5 (4.0-10.5) K/mm3 RBC 4.13 (4.1-5.6) M/mm3 Hgb 12.9 (12.5-18.0) gm/dl Hct 40.8 L (42-50) % MCV 98.8 (78-100) fl MCH 31.2 (26-32) pg MCHC 31.6 L (32-36) g/dl RDW 12.9 (11.5-14.0) % Plt Count 200 (150-450) K/mm3 MPV 10.7 (7.5-11.0) fl Gran % 57.6 (36.0-66.0) % Eos # (Auto) 0.22 (0-0.5) Absolute Lymphs (auto) 2.57 (1.0-4.6) Absolute Monos (auto) 0.78 (0.0-1.3) Lymphocytes % 30.2 (24.0-44.0) % Monocytes % 9.2 (0.0-12.0) % Eosinophils % 2.6 (0.00-5.0) % Basophils % 0.4 (0.0-0.4) % Absolute Granulocytes 4.91 (1.4-6.9) Basophils # 0.03 (0-0.4) Sodium 137 (137-145) mmol/L Potassium 4.0 (3.5-5.1) mmol/L Chloride 104 (98-107) mmol/L Carbon Dioxide 26 (22-30) mmol/L Anion Gap 11.8 (5-15) MEQ/L BUN 15 (9-20) mg/dL Creatinine 0.88 (0.66-1.25) mg/dL Estimated GFR > 60.0 ML/MIN Glucose 156 H (74-106) mg/dL POC Glucometer 120 H (74 to 106) mg/dL Calcium 9.1 (8.4-10.2) mg/dL Total Bilirubin 0.40 (0.2-1.3) mg/dL AST 27 (17-59) U/L ALT 18 (0-50) U/L Alkaline Phosphatase 78 (38-126) U/L Troponin I (0.000-0.034) ng/mL NT-Pro-B Natriuret Pep 121 (0-1800) pg/mL Serum Total Protein 7.4 (6.3-8.2) g/dL Albumin 4.3 (3.5-5.0) g/dL Triglycerides (30-150) mg/dL Cholesterol (50-200) mg/dL LDL Cholesterol (30-100) mg/dL HDL Cholesterol (40-60) mg/dL Heart Disease Risk Ratio Lipase (23-300) U/L Urine Color (YELLOW) Urine Appearance (CLEAR) Urine pH (5-6) Ur Specific [place] (1.005-1.025) Urine Protein (Negative) Urine Ketones (NEGATIVE) Urine Blood (0-5) Minh/ul Urine Nitrite (NEGATIVE) Urine Bilirubin (NEGATIVE) Urine Urobilinogen (0-1) mg/dL Ur Leukocyte Esterase (NEGATIVE) Urine WBC (Auto) (0-5) /HPF Urine RBC (Auto) (0-2) /HPF U Epithel Cells (Auto) (FEW) /HPF Urine Bacteria (Auto) (NEGATIVE) /HPF U Non-Squamous Epi Cells (FEW) /HPF Urine Mucus (Auto) (NEGATIVE) /HPF Urine Culture Reflexed (NO) Urine Glucose (NEGATIVE) mg/dL 05/01/20 05/01/20 05/02/20 Range/Units 23:15 23:15 00:35 WBC (4.0-10.5) K/mm3 RBC (4.1-5.6) M/mm3 Hgb (12.5-18.0) gm/dl Hct (42-50) % MCV (78-100) fl MCH (26-32) pg MCHC (32-36) g/dl RDW (11.5-14.0) % Plt Count (150-450) K/mm3 MPV (7.5-11.0) fl Gran % (36.0-66.0) % Eos # (Auto) (0-0.5) Absolute Lymphs (auto) (1.0-4.6) Absolute Monos (auto) (0.0-1.3) Lymphocytes % (24.0-44.0) % Monocytes % (0.0-12.0) % Eosinophils % (0.00-5.0) % Basophils % (0.0-0.4) % Absolute Granulocytes (1.4-6.9) Basophils # (0-0.4) Sodium (137-145) mmol/L Potassium (3.5-5.1) mmol/L Chloride (98-107) mmol/L Carbon Dioxide (22-30) mmol/L Anion Gap (5-15) MEQ/L BUN (9-20) mg/dL Creatinine (0.66-1.25) mg/dL Estimated GFR ML/MIN Glucose (74-106) mg/dL POC Glucometer (74 to 106) mg/dL Calcium (8.4-10.2) mg/dL Total Bilirubin (0.2-1.3) mg/dL AST (17-59) U/L ALT (0-50) U/L Alkaline Phosphatase (38-126) U/L Troponin I < 0.012 (0.000-0.034) ng/mL NT-Pro-B Natriuret Pep (0-1800) pg/mL Serum Total Protein (6.3-8.2) g/dL Albumin (3.5-5.0) g/dL Triglycerides (30-150) mg/dL Cholesterol (50-200) mg/dL LDL Cholesterol (30-100) mg/dL HDL Cholesterol (40-60) mg/dL Heart Disease Risk Ratio Lipase 80 (23-300) U/L Urine Color YELLOW (YELLOW) Urine Appearance CLEAR (CLEAR) Urine pH 5.0 (5-6) Ur Specific [place] 1.016 (1.005-1.025) Urine Protein NEGATIVE (Negative) Urine Ketones NEGATIVE (NEGATIVE) Urine Blood NEGATIVE (0-5) Minh/ul Urine Nitrite NEGATIVE (NEGATIVE) Urine Bilirubin NEGATIVE (NEGATIVE) Urine Urobilinogen NEGATIVE (0-1) mg/dL Ur Leukocyte Esterase NEGATIVE (NEGATIVE) Urine WBC (Auto) NONE (0-5) /HPF Urine RBC (Auto) 0-2 (0-2) /HPF U Epithel Cells (Auto) NONE (FEW) /HPF Urine Bacteria (Auto) NONE (NEGATIVE) /HPF U Non-Squamous Epi Cells RARE (FEW) /HPF Urine Mucus (Auto) SLIGHT (NEGATIVE) /HPF Urine Culture Reflexed NO (NO) Urine Glucose NEGATIVE (NEGATIVE) mg/dL 05/02/20 05/02/20 05/02/20 Range/Units 02:20 05:30 05:30 WBC (4.0-10.5) K/mm3 RBC (4.1-5.6) M/mm3 Hgb (12.5-18.0) gm/dl Hct (42-50) % MCV (78-100) fl MCH (26-32) pg MCHC (32-36) g/dl RDW (11.5-14.0) % Plt Count (150-450) K/mm3 MPV (7.5-11.0) fl Gran % (36.0-66.0) % Eos # (Auto) (0-0.5) Absolute Lymphs (auto) (1.0-4.6) Absolute Monos (auto) (0.0-1.3) Lymphocytes % (24.0-44.0) % Monocytes % (0.0-12.0) % Eosinophils % (0.00-5.0) % Basophils % (0.0-0.4) % Absolute Granulocytes (1.4-6.9) Basophils # (0-0.4) Sodium (137-145) mmol/L Potassium (3.5-5.1) mmol/L Chloride (98-107) mmol/L Carbon Dioxide (22-30) mmol/L Anion Gap (5-15) MEQ/L BUN (9-20) mg/dL Creatinine (0.66-1.25) mg/dL Estimated GFR ML/MIN Glucose (74-106) mg/dL POC Glucometer (74 to 106) mg/dL Calcium (8.4-10.2) mg/dL Total Bilirubin (0.2-1.3) mg/dL AST (17-59) U/L ALT (0-50) U/L Alkaline Phosphatase (38-126) U/L Troponin I < 0.012 < 0.012 (0.000-0.034) ng/mL NT-Pro-B Natriuret Pep (0-1800) pg/mL Serum Total Protein (6.3-8.2) g/dL Albumin (3.5-5.0) g/dL Triglycerides 126 (30-150) mg/dL Cholesterol 126 (50-200) mg/dL LDL Cholesterol 67 (30-100) mg/dL HDL Cholesterol 41 (40-60) mg/dL Heart Disease Risk Ratio 3.0 Lipase (23-300) U/L Urine Color (YELLOW) Urine Appearance (CLEAR) Urine pH (5-6) Ur Specific [place] (1.005-1.025) Urine Protein (Negative) Urine Ketones (NEGATIVE) Urine Blood (0-5) Minh/ul Urine Nitrite (NEGATIVE) Urine Bilirubin (NEGATIVE) Urine Urobilinogen (0-1) mg/dL Ur Leukocyte Esterase (NEGATIVE) Urine WBC (Auto) (0-5) /HPF Urine RBC (Auto) (0-2) /HPF U Epithel Cells (Auto) (FEW) /HPF Urine Bacteria (Auto) (NEGATIVE) /HPF U Non-Squamous Epi Cells (FEW) /HPF Urine Mucus (Auto) (NEGATIVE) /HPF Urine Culture Reflexed (NO) Urine Glucose (NEGATIVE) mg/dL 05/02/20 Range/Units 08:20 WBC (4.0-10.5) K/mm3 RBC (4.1-5.6) M/mm3 Hgb (12.5-18.0) gm/dl Hct (42-50) % MCV (78-100) fl MCH (26-32) pg MCHC (32-36) g/dl RDW (11.5-14.0) % Plt Count (150-450) K/mm3 MPV (7.5-11.0) fl Gran % (36.0-66.0) % Eos # (Auto) (0-0.5) Absolute Lymphs (auto) (1.0-4.6) Absolute Monos (auto) (0.0-1.3) Lymphocytes % (24.0-44.0) % Monocytes % (0.0-12.0) % Eosinophils % (0.00-5.0) % Basophils % (0.0-0.4) % Absolute Granulocytes (1.4-6.9) Basophils # (0-0.4) Sodium (137-145) mmol/L Potassium (3.5-5.1) mmol/L Chloride (98-107) mmol/L Carbon Dioxide (22-30) mmol/L Anion Gap (5-15) MEQ/L BUN (9-20) mg/dL Creatinine (0.66-1.25) mg/dL Estimated GFR ML/MIN Glucose (74-106) mg/dL POC Glucometer (74 to 106) mg/dL Calcium (8.4-10.2) mg/dL Total Bilirubin (0.2-1.3) mg/dL AST (17-59) U/L ALT (0-50) U/L Alkaline Phosphatase (38-126) U/L Troponin I < 0.012 (0.000-0.034) ng/mL NT-Pro-B Natriuret Pep (0-1800) pg/mL Serum Total Protein (6.3-8.2) g/dL Albumin (3.5-5.0) g/dL Triglycerides (30-150) mg/dL Cholesterol (50-200) mg/dL LDL Cholesterol (30-100) mg/dL HDL Cholesterol (40-60) mg/dL Heart Disease Risk Ratio Lipase (23-300) U/L Urine Color (YELLOW) Urine Appearance (CLEAR) Urine pH (5-6) Ur Specific [place] (1.005-1.025) Urine Protein (Negative) Urine Ketones (NEGATIVE) Urine Blood (0-5) Minh/ul Urine Nitrite (NEGATIVE) Urine Bilirubin (NEGATIVE) Urine Urobilinogen (0-1) mg/dL Ur Leukocyte Esterase (NEGATIVE) Urine WBC (Auto) (0-5) /HPF Urine RBC (Auto) (0-2) /HPF U Epithel Cells (Auto) (FEW) /HPF Urine Bacteria (Auto) (NEGATIVE) /HPF U Non-Squamous Epi Cells (FEW) /HPF Urine Mucus (Auto) (NEGATIVE) /HPF Urine Culture Reflexed (NO) Urine Glucose (NEGATIVE) mg/dL - Radiology Exams Ordered Rad Exams-Entire Visit: Radiology Procedures Category Date Time Status CHEST 1 VIEW (PORTABLE) Stat Exams 05/01/20 23:11 Completed - Procedures and Test Procedures and Tests throughout Hospitalization: Therapy Orders & Screens 05/02/20 07:00 EKG ONCE Comment: Diagnosis: Deconditioning r/t CHF, cellulitis 05/03/20 05:00 EKG ONCE Comment: Diagnosis: Deconditioning r/t CHF, cellulitis 05/04/20 05:00 EKG ONCE Comment: Diagnosis: Deconditioning r/t CHF, cellulitis 05/05/20 05:00 EKG ONCE Comment: Diagnosis: Deconditioning r/t CHF, cellulitis - Discharge Disposition: Home, Self-Care Condition: Stable Prescriptions: Continue Simvastatin 10 mg [Zocor 10MG] 10 mg PO QPM Metoprolol Succinate 50 mg [Toprol Xl 50 MG] 50 mg PO HS Aspirin EC 81 mg [Ecotrin 81 mg] 81 mg PO DAILY Follow up with: OSVALDO GILL [Primary Care Provider] -
[2020-05-02] MEDS ORDERED: ECOTRIN 81 MG PO SCH (12:00)
[2020-05-02] MEDS ORDERED: Zocor 10MG PO SCH (22:00)
[2020-05-02] MEDS ORDERED: Toprol Xl 50 MG PO SCH (22:00)
== END 2020-05-02 11:30 | disposition home or self-care (01) ==
LOC: ED 23:06 → MED SURG 05-02 01:44
PROVIDERS: ADMIT Family Medicine; ATTEND Family Medicine
DX: R55 Syncope and collapse (principal); R03.0 Elevated blood-pressure reading, without diagnosis of hypertension; Z79.899 Other long term (current) drug therapy; E78.00 Pure hypercholesterolemia, unspecified; I10 Essential (primary) hypertension
CPT/HCPCS: 36000; 36415; 71045; 80053; 80061; 81001; 82947; 83690; 83721; 83880; 84484; 85025; 93005; 93041; 93268; 96360; 96374; 99285; G0378; J2405; A9270-GY

== ENCOUNTER 2022-03-12 10:05 | Emergency (ER) | payer MEDICARE, OTHER ==
--- NOTE | 2022-03-12 10:10 | ERPHSYRPT ---
- History of Present Illness Time Seen by Provider: 03/12/22 10:10 Source: patient, family Exam Limitations: no limitations Physician History: This is a 76-year-old right-handed white male who was stung by a wasp yesterday. Redness swelling and tenderness is present in the dorsal aspect of his right hand. Patient has not taken any medication to help improve his symptoms. Patient is not diabetic. Patient has a history of hyperlipidemia and hypertension. Timing/Duration: yesterday Quality: itchy, painful Severity: mild Location: hands (Dorsal aspect right hand) Possible Causes: insect sting Modifying Factors: Improves With: antihistamine (Topical) Associated Symptoms: denies symptoms Allergies/Adverse Reactions: No Known Drug Allergies Allergy (Verified 03/12/22 10:11) Home Medications: Aspirin EC 81 mg [Ecotrin 81 mg] 81 mg PO DAILY 05/01/20 [History] Metoprolol Succinate 50 mg [Toprol Xl 50 MG] 50 mg PO HS 05/01/20 [History] Simvastatin 10 mg [Zocor 10MG] 10 mg PO QPM 05/01/20 [History] Hx Tetanus, Diphtheria Vaccination/Date Given: No Hx Influenza Vaccination/Date Given: Yes Hx Pneumococcal Vaccination/Date Given: No Travel Risk - International Travel Have you traveled outside of the country in past 3 weeks: No - Coronavirus Screening Are you exhibiting any of the following symptoms?: No Close contact with a COVID-19 positive Pt in past 14-21 Days: No - Review of Systems Constitutional: No Symptoms Eyes: No Symptoms Ears, Nose, & Throat: No Symptoms Respiratory: No Symptoms Cardiac: No Symptoms Abdominal/Gastrointestinal: No Symptoms Genitourinary Symptoms: No Symptoms Musculoskeletal: No Symptoms Skin: Other (Mild redness swelling tenderness dorsal aspect right hand) Neurological: No Symptoms Psychological: No Symptoms Endocrine: No Symptoms Hematologic/Lymphatic: No Symptoms Immunological/Allergic: No Symptoms All Other Systems: Reviewed and Negative - Past Medical History Pertinent Past Medical History: Yes Neurological History: No Pertinent History ENT History: No Pertinent History Cardiac History: High Cholesterol, Hypertension Respiratory History: No Pertinent History Endocrine Medical History: No Pertinent History Musculoskeletal History: No Pertinent History GI Medical History: Hernia History: No Pertinent History Psycho-Social History: No Pertinent History Male Reproductive Disorders: No Pertinent History Other Medical History: skin cancer on the top of one of ears and 5 spots removed on face - Past Surgical History Past Surgical History: Yes Neuro Surgical History: No Pertinent History Cardiac: No Pertinent History Respiratory: No Pertinent History Gastrointestinal: Hernia Repair Genitourinary: No Pertinent History Musculoskeletal: No Pertinent History Male Surgical History: No Pertinent History Other Surgical History: skin cancer removed from face - Social History Smoking Status: Never smoker Exposure to second hand smoke: No Drug Use: none Patient Lives Alone: Yes - Nursing Vital Signs Nursing Vital Signs: Initial Vital Signs Temperature 97.2 F 03/12/22 10:16 Pulse Rate 63 03/12/22 10:16 Respiratory Rate 18 03/12/22 10:16 Blood Pressure 151/77 03/12/22 10:16 O2 Sat by Pulse Oximetry 100 03/12/22 10:16 Pain Scale Pain Intensity 4 - Physical Exam General Appearance: no apparent distress, alert, anxiety Eye Exam: PERRL/EOMI, eyes nml inspection Ears, Nose, Throat Exam: normal ENT inspection, moist mucous membranes Neck Exam: normal inspection, non-tender, supple, full range of motion Respiratory Exam: normal breath sounds, lungs clear, airway intact, No chest tenderness, No respiratory distress Cardiovascular Exam: regular rate/rhythm, normal heart sounds, normal peripheral pulses Gastrointestinal/Abdomen Exam: soft, normal bowel sounds, No tenderness Rectal Exam: not done Back Exam: normal inspection, normal range of motion, No CVA tenderness, No vertebral tenderness Extremity Exam: normal range of motion, pelvis stable, inflammation (Dorsal aspect right hand), swelling (Dorsal aspect right hand), tenderness (Dorsal aspect right hand), other (Mild redness dorsal aspect right hand) Ordered Tests: Medication Summary Generic Name Dose Route Start Last Admin Trade Name Aurelia PRN Reason Stop Dose Admin Methylprednisolone Sodium 0 mg 03/12/22 10:58 Succinate 125 mg/ Sterile IM 03/12/22 10:59 Water 2 ml STAT ONE Diphenhydramine HCl 50 mg 03/12/22 10:58 Diphenhydramine Hcl 25 Mg Capsule PO 03/12/22 10:59 STAT ONE Famotidine 40 mg 03/12/22 10:58 Famotidine 20 Mg Tablet PO 03/12/22 10:59 STAT ONE - Progress Progress: unchanged Counseled pt/family regarding: diagnosis, need for follow-up - Departure Departure Disposition: Home Clinical Impression: Allergic reaction, Wasp sting Condition: Stable Critical Care Time: No Referrals: OSVALDO GILL MD [Primary Care Provider] - Follow up/PCP as directed Additional Instructions: Keep site clean daily. Continue Benadryl 25 mg orally 3 times a day for the next 4 days. Take your medication as prescribed. Prescriptions: Prednisone 10 mg [Deltasone 10 mg] 10 mg PO TID #12 tablet Cephalexin Mh 500 mg [Keflex 500 mg] 500 mg PO TID #15 cap Famotidine 20 mg [Pepcid 20 MG] 20 mg PO DAILY #5 tablet
[2022-03-12] MEDS ORDERED: solu-MEDROL 125 MG, Sterile H2O 10 ml 2 ML IM ONE ×2 (10:58)
[2022-03-12] MEDS ORDERED: BENADRYL 25 MG CAPSULE PO ONE (10:58)
[2022-03-12] MEDS ORDERED: Pepcid 20 MG PO ONE (10:58)
[2022-03-12] MEDS ORDERED: Pepcid 20 MG ONE (11:07)
[2022-03-12] MEDS ORDERED: Sterile H2O 10 ml IJ ONE (11:07)
[2022-03-12] MEDS ORDERED: BENADRYL 25 MG CAPSULE ONE (11:08)
[2022-03-12] MEDS ORDERED: solu-MEDROL ONE (11:08)
[2022-03-12 11:59] VITALS: BP 158/74; PULSE 76; O2SAT 97
== END 2022-03-12 11:59 | disposition home or self-care (01) ==
LOC: ED 10:05
DX: T63.461A Toxic effect of venom of wasps, accidental (unintentional), initial encounter (principal); M79.89 Other specified soft tissue disorders; S60.561A Insect bite (nonvenomous) of right hand, initial encounter; E78.5 Hyperlipidemia, unspecified; I10 Essential (primary) hypertension; Z79.899 Other long term (current) drug therapy; Z79.52 Long term (current) use of systemic steroids
CPT/HCPCS: 96372; 99283; J2930; A9270-GY

== ENCOUNTER 2023-08-20 09:21 | Emergency (ER) | payer MEDICARE, OTHER ==
[2023-08-20 09:41] VITALS: TEMP 96.4
[2023-08-20] MEDS ORDERED: Zofran 4 MG/2 ML VIAL ONE (09:46)
[2023-08-20] MEDS: Zofran 4 MG/2 ML VIAL IV ONE (09:47)
--- NOTE | 2023-08-20 09:49 | ERPHSYRPT ---
- History of Present Illness Time Seen by Provider: 08/20/23 09:42 Source: patient Exam Limitations: no limitations Patient Subjective Stated Complaint: C/O "light headedness," nausea, and leg aches for a few days. Denies fever, abdominal pain, falls, vomiting, diarrhea, c onstipation, dizziness. Triage Nursing Assessment: Patient ambulated back to ER with a slow gait. He is alert and oriented X 4 but can become confused/uncertain when asked specific questions about events prior to today such as "what did you eat for dinner last night." Patient is drowsy, falling asleep at times during the assessment. SILVA WNL. Skin tone normal. BLE with some noted edema. Physician History: C/O "light headedness," nausea, and leg aches for a few days. Denies fever, abdominal pain, falls, vomiting, diarrhea, constipation, dizziness. confused/uncertain when asked specific questions about events prior to today such as "what did you eat for dinner last night." Patient is drowsy, falling asleep at times during the assessment. Patient is 77-year-old male with significant past medical history of hypertension hyperlipidemia coronary artery disease came to the emergency room with nausea and leg aches for few days. During nursing evaluation patient was drowsy and confused. On further interview patient says that he is not feeling well unable to answer further question. Patient drove by himself to the emergency room. Timing/Duration: day(s) (2-3 days) Associated Symptoms: nausea, weakness, other (leg cramps) Allergies/Adverse Reactions: No Known Drug Allergies Allergy (Verified 08/20/23 09:29) Home Medications: Aspirin EC 81 mg [Ecotrin 81 mg] 81 mg PO DAILY 05/01/20 [History] Metoprolol Succinate 50 mg [Toprol Xl 50 MG] 50 mg PO HS 05/01/20 [History] Simvastatin 10 mg [Zocor 10MG] 10 mg PO QPM 05/01/20 [History] Ferrous Sulfate [Iron] 325 mg PO DAILY 08/20/23 [History] Furosemide 20 mg [Lasix 20 mg] 20 mg PO DAILY PRN 08/20/23 [History] Losartan/Hydrochlorothiazide [Losartan-Hctz 100-12.5 mg Tab] 1 tab PO DAILY 08/20/23 [History] Naproxen 500 mg [Naprosyn 500 MG] 500 mg PO BID PRN 08/20/23 [History] Hx Tetanus, Diphtheria Vaccination/Date Given: Yes Hx Influenza Vaccination/Date Given: Yes Hx Pneumococcal Vaccination/Date Given: Yes Immunizations Up to Date: Yes Travel Risk - International Travel Have you traveled outside of the country in past 3 weeks: No - Emerging Infectious Disease Are you exhibiting symptoms associated with any current EIDs: Yes Symptoms: Headaches/Body Aches/ - Review of Systems Constitutional: Lethargy, Malaise, Weakness, No Fever, No Chills Eyes: No Symptoms Ears, Nose, & Throat: No Symptoms Respiratory: No Cough, No Dyspnea Cardiac: No Chest Pain, No Edema, No Syncope Abdominal/Gastrointestinal: Nausea, No Abdominal Pain, No Vomiting, No Diarrhea Genitourinary Symptoms: No Dysuria Musculoskeletal: No Back Pain, No Neck Pain Skin: No Symptoms, No Rash Neurological: Lethargy, No Dizziness, No Focal Weakness, No Sensory Changes Psychological: No Symptoms Endocrine: No Symptoms Hematologic/Lymphatic: No Symptoms Immunological/Allergic: No Symptoms All Other Systems: Reviewed and Negative - Past Medical History Pertinent Past Medical History: Yes Neurological History: No Pertinent History ENT History: No Pertinent History Cardiac History: High Cholesterol, Hypertension Respiratory History: No Pertinent History Endocrine Medical History: No Pertinent History Musculoskeletal History: No Pertinent History GI Medical History: GERD, Hernia History: No Pertinent History Psycho-Social History: No Pertinent History Male Reproductive Disorders: No Pertinent History Other Medical History: skin cancer on the top of one of ears and 5 spots removed on face - Past Surgical History Past Surgical History: Yes Neuro Surgical History: No Pertinent History Cardiac: No Pertinent History Respiratory: No Pertinent History Gastrointestinal: Hernia Repair Genitourinary: No Pertinent History Musculoskeletal: No Pertinent History Male Surgical History: No Pertinent History Other Surgical History: skin cancer removed from face - Social History Smoking Status: Never smoker Exposure to second hand smoke: No Drug Use: none Patient Lives Alone: Yes - Nursing Vital Signs Nursing Vital Signs: Initial Vital Signs Temperature 96.4 F 08/20/23 09:30 Pulse Rate 67 08/20/23 09:30 Respiratory Rate 24 08/20/23 09:30 Blood Pressure 128/61 08/20/23 09:30 O2 Sat by Pulse Oximetry 98 08/20/23 09:30 Pain Scale Pain Intensity 3 - Physical Exam General Appearance: mild distress, alert Eye Exam: PERRL/EOMI, eyes nml inspection Ears, Nose, Throat Exam: normal ENT inspection, TMs normal, pharynx normal, moist mucous membranes Neck Exam: normal inspection, non-tender, supple, full range of motion Respiratory Exam: normal breath sounds, lungs clear, No respiratory distress Cardiovascular Exam: regular rate/rhythm, normal heart sounds, normal peripheral pulses Gastrointestinal/Abdomen Exam: soft, normal bowel sounds, No tenderness, No mass Back Exam: normal inspection, normal range of motion, No CVA tenderness, No vertebral tenderness Extremity Exam: normal inspection, normal range of motion, pelvis stable Neurologic Exam: alert, oriented x 3, cooperative, normal mood/affect, nml cerebellar function, nml station & gait, sensation nml, confusion, No motor deficits Skin Exam: normal color, warm, dry, No rash Lymphatic Exam: No adenopathy SpO2: 98 Ordered Tests: Active Orders 24 hr Category Date Time Status EKG-ER Only STAT Care 08/20/23 09:59 Active NPO (ED) STAT Care 08/20/23 10:26 Active HEAD WITHOUT CONTRAST [CT] Stat Exams 08/20/23 10:26 Completed AMYLASE Stat Lab 08/20/23 09:43 Completed BMP Stat Lab 08/20/23 11:45 Completed BNPII [NT PRO BNPII] Stat Lab 08/20/23 09:43 Completed CBC W DIFF Stat Lab 08/20/23 09:43 Completed CMP Stat Lab 08/20/23 09:43 Completed LIPASE Stat Lab 08/20/23 09:43 Completed Lactic Acid Stat Lab 08/20/23 09:55 Completed Lactic Acid Stat Lab 08/20/23 12:01 Received TROPONIN Stat Lab 08/20/23 09:43 Completed UA W/RFX UR CULTURE Stat Lab 08/20/23 10:11 Completed Medication Summary Discontinued Medications Generic Name Dose Route Start Last Admin Trade Name Freq PRN Reason Stop Dose Admin Sodium Chloride 1,000 mls @ 999 mls/hr 08/20/23 09:59 08/20/23 11:04 Sodium Chloride 0.9% 1000 Ml IV 08/20/23 10:59 Infused .Q1H1M STA Infusion Sodium Chloride Confirm 08/20/23 10:01 Sodium Chloride 0.9% 1000 Ml Administered 08/20/23 10:02 Dose 1,000 mls @ ud .ROUTE .STK-MED ONE Dextrose/Sodium Chloride 1,000 mls @ 999 mls/hr 08/20/23 11:00 08/20/23 12:08 Dextrose 5%-Ns Iv Solution 1000 Ml IV 09/19/23 10:59 Not Given .Q1H1M JAMES Dextrose/Sodium Chloride Confirm 08/20/23 10:53 Dextrose 5%-Ns Iv Solution 1000 Ml Administered 08/20/23 10:54 Dose 1,000 mls @ ud IV .STK-MED ONE Ondansetron HCl 4 mg 08/20/23 09:46 08/20/23 09:47 Ondansetron Hcl 4 Mg/2 Ml Vial IV 08/20/23 09:47 4 mg STAT ONE Administration Ondansetron HCl Confirm 08/20/23 09:46 Ondansetron Hcl 4 Mg/2 Ml Vial Administered 08/20/23 09:47 Dose 4 mg .ROUTE .STK-MED ONE Lab/Rad Data: Laboratory Result Diagrams 08/20/23 09:43 08/20/23 11:45 Laboratory Results 08/20/23 08/20/23 08/20/23 Range/Units 11:45 10:11 10:00 WBC (4.0-10.5) x10^3/uL RBC (4.1-5.6) x10^6/uL Hgb (12.5-18.0) g/dL Hct (42-50) % MCV (78-100) fL MCH (26-32) pg MCHC (32-36) g/dL RDW (11.5-14.0) % Plt Count (150-450) x10^3/uL MPV (7.5-11.0) fL Gran % (36.0-66.0) % Immature Gran % (Auto) (0.00-0.4) % Nucleat RBC Rel Count (0.00-0.1) % Eos # (Auto) (0-0.5) x10^3/uL Immature Gran # (Auto) (0.00-0.03) x10^3u/L Absolute Lymphs (auto) (1.0-4.6) x10^3/uL Absolute Monos (auto) (0.0-1.3) x10^3/uL Absolute Nucleated RBC (0.00-0.01) x10^3u/L Lymphocytes % (24.0-44.0) % Monocytes % (0.0-12.0) % Eosinophils % (0.00-5.0) % Basophils % (0.0-0.4) % Absolute Granulocytes (1.4-6.9) x10^3/uL Basophils # (0-0.4) x10^3/uL Sodium 117 L* (135-145) mmol/L Potassium 3.9 (3.5-5.1) mmol/L Chloride 91 L (98-107) mmol/L Carbon Dioxide 18 L (22-30) mmol/L Anion Gap 12.7 (5-15) MEQ/L BUN 15 (9-20) mg/dL Creatinine 0.95 (0.66-1.25) mg/dL Estimated GFR 81.4 ML/MIN Glucose 241 H (74-106) mg/dL Lactic Acid (0.4-2.0) Calcium 8.1 L (8.4-10.2) mg/dL Total Bilirubin (0.2-1.3) mg/dL AST (17-59) U/L ALT (0-50) U/L Alkaline Phosphatase (38-126) U/L Troponin I (0.000-0.033) ng/mL NT-Pro-B Natriuret Pep (<300) pg/mL Serum Total Protein (6.3-8.2) g/dL Albumin (3.5-5.0) g/dL Amylase (30-110) U/L Lipase (23-300) U/L Urine Color Yellow (Yellow) Urine Appearance Clear (Clear) Urine pH 7.5 (4.6-8.0) Ur Specific [place] 1.010 (1.005-1.030) Urine Protein Negative (Negative) Urine Glucose (UA) Negative (Negative) mg/dL Urine Ketones Negative (Negative) Urine Blood Negative (Negative) Urine Nitrite Negative (Negative) Urine Bilirubin Negative (Negative) Urine Urobilinogen 0.2 (0.2) mg/dL Ur Leukocyte Esterase Negative (Negative) U Hyaline Cast (Auto) NONE SEEN (0-2) /LPF Urine Microscopic RBC 0-2 (0-5) /HPF Urine Microscopic WBC 0-2 (0-5) /HPF Ur Epithelial Cells None Seen (None Seen) /HPF Urine Bacteria None Seen (None Seen) /HPF Urine Culture Reflexed NO (NO) Influenza Type A Ag NEGATIVE (NEGATIVE) Influenza Type B Ag NEGATIVE (NEGATIVE) RSV (PCR) NEGATIVE (NEGATIVE) SARS-CoV-2 (PCR) NEGATIVE (NEGATIVE) 08/20/23 08/20/23 08/20/23 Range/Units 09:55 09:43 09:43 WBC (4.0-10.5) x10^3/uL RBC (4.1-5.6) x10^6/uL Hgb (12.5-18.0) g/dL Hct (42-50) % MCV (78-100) fL MCH (26-32) pg MCHC (32-36) g/dL RDW (11.5-14.0) % Plt Count (150-450) x10^3/uL MPV (7.5-11.0) fL Gran % (36.0-66.0) % Immature Gran % (Auto) (0.00-0.4) % Nucleat RBC Rel Count (0.00-0.1) % Eos # (Auto) (0-0.5) x10^3/uL Immature Gran # (Auto) (0.00-0.03) x10^3u/L Absolute Lymphs (auto) (1.0-4.6) x10^3/uL Absolute Monos (auto) (0.0-1.3) x10^3/uL Absolute Nucleated RBC (0.00-0.01) x10^3u/L Lymphocytes % (24.0-44.0) % Monocytes % (0.0-12.0) % Eosinophils % (0.00-5.0) % Basophils % (0.0-0.4) % Absolute Granulocytes (1.4-6.9) x10^3/uL Basophils # (0-0.4) x10^3/uL Sodium (135-145) mmol/L Potassium (3.5-5.1) mmol/L Chloride (98-107) mmol/L Carbon Dioxide (22-30) mmol/L Anion Gap (5-15) MEQ/L BUN (9-20) mg/dL Creatinine (0.66-1.25) mg/dL Estimated GFR ML/MIN Glucose (74-106) mg/dL Lactic Acid 1.9 (0.4-2.0) Calcium (8.4-10.2) mg/dL Total Bilirubin (0.2-1.3) mg/dL AST (17-59) U/L ALT (0-50) U/L Alkaline Phosphatase (38-126) U/L Troponin I < 0.012 (0.000-0.033) ng/mL NT-Pro-B Natriuret Pep 277 (<300) pg/mL Serum Total Protein (6.3-8.2) g/dL Albumin (3.5-5.0) g/dL Amylase (30-110) U/L Lipase (23-300) U/L Urine Color (Yellow) Urine Appearance (Clear) Urine pH (4.6-8.0) Ur Specific [place] (1.005-1.030) Urine Protein (Negative) Urine Glucose (UA) (Negative) mg/dL Urine Ketones (Negative) Urine Blood (Negative) Urine Nitrite (Negative) Urine Bilirubin (Negative) Urine Urobilinogen (0.2) mg/dL Ur Leukocyte Esterase (Negative) U Hyaline Cast (Auto) (0-2) /LPF Urine Microscopic RBC (0-5) /HPF Urine Microscopic WBC (0-5) /HPF Ur Epithelial Cells (None Seen) /HPF Urine Bacteria (None Seen) /HPF Urine Culture Reflexed (NO) Influenza Type A Ag (NEGATIVE) Influenza Type B Ag (NEGATIVE) RSV (PCR) (NEGATIVE) SARS-CoV-2 (PCR) (NEGATIVE) 08/20/23 08/20/23 Range/Units 09:43 09:43 WBC 7.6 (4.0-10.5) x10^3/uL RBC 3.90 L (4.1-5.6) x10^6/uL Hgb 12.6 (12.5-18.0) g/dL Hct 34.3 L (42-50) % MCV 87.9 (78-100) fL MCH 32.3 H (26-32) pg MCHC 36.7 H (32-36) g/dL RDW 11.4 L (11.5-14.0) % Plt Count 240 (150-450) x10^3/uL MPV 9.8 (7.5-11.0) fL Gran % 62.6 (36.0-66.0) % Immature Gran % (Auto) 0.7 H (0.00-0.4) % Nucleat RBC Rel Count 0.0 (0.00-0.1) % Eos # (Auto) 0.04 (0-0.5) x10^3/uL Immature Gran # (Auto) 0.05 H (0.00-0.03) x10^3u/L Absolute Lymphs (auto) 1.87 (1.0-4.6) x10^3/uL Absolute Monos (auto) 0.84 (0.0-1.3) x10^3/uL Absolute Nucleated RBC 0.00 (0.00-0.01) x10^3u/L Lymphocytes % 24.7 (24.0-44.0) % Monocytes % 11.1 (0.0-12.0) % Eosinophils % 0.5 (0.00-5.0) % Basophils % 0.4 (0.0-0.4) % Absolute Granulocytes 4.74 (1.4-6.9) x10^3/uL Basophils # 0.03 (0-0.4) x10^3/uL Sodium 117 L* (135-145) mmol/L Potassium 4.1 (3.5-5.1) mmol/L Chloride 87 L (98-107) mmol/L Carbon Dioxide 20 L (22-30) mmol/L Anion Gap 10.5 (5-15) MEQ/L BUN 17 (9-20) mg/dL Creatinine 1.03 (0.66-1.25) mg/dL Estimated GFR 73.9 ML/MIN Glucose 112 H (74-106) mg/dL Lactic Acid (0.4-2.0) Calcium 9.1 (8.4-10.2) mg/dL Total Bilirubin 1.60 H (0.2-1.3) mg/dL AST 47 (17-59) U/L ALT 23 (0-50) U/L Alkaline Phosphatase 74 (38-126) U/L Troponin I (0.000-0.033) ng/mL NT-Pro-B Natriuret Pep (<300) pg/mL Serum Total Protein 7.3 (6.3-8.2) g/dL Albumin 4.1 (3.5-5.0) g/dL Amylase 78 (30-110) U/L Lipase 74 (23-300) U/L Urine Color (Yellow) Urine Appearance (Clear) Urine pH (4.6-8.0) Ur Specific [place] (1.005-1.030) Urine Protein (Negative) Urine Glucose (UA) (Negative) mg/dL Urine Ketones (Negative) Urine Blood (Negative) Urine Nitrite (Negative) Urine Bilirubin (Negative) Urine Urobilinogen (0.2) mg/dL Ur Leukocyte Esterase (Negative) U Hyaline Cast (Auto) (0-2) /LPF Urine Microscopic RBC (0-5) /HPF Urine Microscopic WBC (0-5) /HPF Ur Epithelial Cells (None Seen) /HPF Urine Bacteria (None Seen) /HPF Urine Culture Reflexed (NO) Influenza Type A Ag (NEGATIVE) Influenza Type B Ag (NEGATIVE) RSV (PCR) (NEGATIVE) SARS-CoV-2 (PCR) (NEGATIVE) - Progress Progress: unchanged Progress Note: 08/20/23 12:42 Patient Na repeated level is 117 08/20/23 12:46 Dr Mojica (nephrology) consulted. He accepted patient for consult. Will Transfer patient to [facility] under hospitalist service once bed available Counseled pt/family regarding: lab results, diagnosis, need for follow-up, rad results Medical Desision Making - Independent Historian Additional History obtained from: Family - External Record(s) Reviewed Records reviewed as a part of evaluation & management: Inpatient, Clinic - Discussion of managment Care discussed with:: hospitalist (advised transfer for further nephrology service) - Diagnostic Testing Diagnostic test were ordered, analyzed, and reviewed by me: Yes - Departure Departure Disposition: Transfer ([facility]) Clinical Impression: Hyponatremia with normal extracellular fluid volume Condition: Fair Critical Care Time: Yes Critical Care Time(excluding separately billable procedures): Critical 30-74 mins Referrals: OSVALDO GILL MD [Primary Care Provider] - Follow up/PCP as directed
[2023-08-20 10:00] LABS: Absolute Neutrophil Ct (ANC) 4.74 x10^3/uL (1.4-6.9); BASOPHIL % 0.4 % (0.0-0.4); Basophil (Absolute #) 0.03 x10^3/uL (0-0.4); Eosinophil % 0.5 % (0.00-5.0); Eosinophil (Absolute #) 0.04 x10^3/uL (0-0.5); Hematocrit 34.3 % (42-50); Hemoglobin 12.6 g/dL (12.5-18.0); IMMATURE GRAN # 0.05 x10^3u/L (0.00-0.03); IMMATURE GRAN % 0.7 % (0.00-0.4); Lymphocyte (Absolute #) 1.87 x10^3/uL (1.0-4.6); Lymphocytes % 24.7 % (24.0-44.0); Mean Cell Volume 87.9 fL (78-100); Mean Corpuscular Hemoglobin 32.3 pg (26-32); Mean Corpuscular Hgb Concent. 36.7 g/dL (32-36); Mean Platelet Volume 9.8 fL (7.5-11.0); Monocyte (Absolute #) 0.84 x10^3/uL (0.0-1.3); Monocytes % 11.1 % (0.0-12.0); Neutrophil % 62.6 % (36.0-66.0); Platelet Count 240 x10^3/uL (150-450); Red Cell Distribution Width 11.4 % (11.5-14.0); White Blood Count 7.6 x10^3/uL (4.0-10.5)
[2023-08-20] MEDS ORDERED: Sodium Chloride 0.9% 1000 ML 1,000 ML ONE (10:01)
[2023-08-20] MEDS: Sodium Chloride 0.9% 1000 ML 1,000 ML IV STA (10:02)
[2023-08-20 10:10] LABS: ALBUMIN 4.1 g/dL (3.5-5.0); ANION GAP 10.5 MEQ/L (5-15); BILIRUBIN,TOTAL 1.6 mg/dL (0.2-1.3); Calcium 9.1 mg/dL (8.4-10.2); Creatinine 1 1.03 mg/dL (0.66-1.25); EST GLOMERULAR FILTRATION RATE 73.9 ML/MIN; Potassium 4.1 mmol/L (3.5-5.1); Total Protein 7.3 g/dL (6.3-8.2)
[2023-08-20 10:25] LABS: Appearance Clear (Clear); Bacteria None Seen /HPF (None Seen); Bilirubin Negative (Negative); Blood Negative (Negative); Epithelial Cells None Seen /HPF (None Seen); Glucose, Urine Negative (Negative); Hyaline Casts NONE SEEN /LPF (0-2); Ketones Negative (Negative); Leukocyte Esterase Negative (Negative); Nitrite Negative (Negative); Ph 7.5 (4.6-8.0); Protein,Urine Dip Negative (Negative); RBC 0-2 /HPF (0-5); Urobilinogen 0.2 mg/dL (0.2); WBC 0-2 /HPF (0-5)
[2023-08-20 10:41] LABS: ADD URINE CULTURE? NO (NO)
[2023-08-20 10:41] LABS: INFLUENZA A NEGATIVE (NEGATIVE); INFLUENZA B NEGATIVE (NEGATIVE); RESPIRATORY SYNCTIAL VIRUS NEGATIVE (NEGATIVE); SARS-CoV-2 Xpert Express NEGATIVE (NEGATIVE)
[2023-08-20] MEDS ORDERED: Dextrose 5%-NS IV Solution 1000 ML 1,000 ML IV ONE (10:53)
[2023-08-20] MEDS: Dextrose 5%-NS IV Solution 1000 ML 1,000 ML IV SCH (10:54)
--- NOTE | 2023-08-20 11:36 | XRAY ---
CLINICAL HISTORY: confusion COMPARISON: None TECHNIQUE: Axial [id number] CT scan of the brain was performed from the skull base to the high parietal region. One of the following dose reduction techniques were utilized for this exam: Automated exposure control, adjustment of the mA and/or kV according to patient size, and use of iterative reconstruction. DLP:1016.25 mGy*cm. FINDINGS: Prominent ventricular system and exra-axial CSF spaces. The visualized brain parenchyma shows normal appearance. No focal parenchymal abnormalities are demonstrated. Schmitz-white matter differentiation is maintained. No midline shifts or deformity. No intracerebral or extra axial hematoma. Normal size and configuration of the cerebral ventricles. Normal CT appearance of the posterior fossa structures namely the cerebellar hemispheres, brainstem and cerebellar peduncles. The osseous structures in the skull base are unremarkable. No definite calvarium fractures. Scanned paranasal sinuses are clear. IMPRESSION: No evidence of acute infarction or recent hemorrhage. Age-matched involutional brain changes. Electronically Signed by: Leida Osuna MD. (08/20/2023 11:31:35 EDT)
[2023-08-20 12:08] LABS: ANION GAP 12.7 MEQ/L (5-15); Calcium 8.1 mg/dL (8.4-10.2); Creatinine 1 0.95 mg/dL (0.66-1.25); EST GLOMERULAR FILTRATION RATE 81.4 ML/MIN; Potassium 3.9 mmol/L (3.5-5.1)
[2023-08-20 15:32] VITALS: BP 150/67; PULSE 79; RESP 22; O2SAT 97
== END 2023-08-20 15:50 | disposition short-term general hospital (02) ==
LOC: ED 09:21
DX: E87.1 Hypo-osmolality and hyponatremia (principal); R42 Dizziness and giddiness; R11.0 Nausea; R25.2 Cramp and spasm; R40.0 Somnolence; I10 Essential (primary) hypertension; E78.5 Hyperlipidemia, unspecified; Z79.899 Other long term (current) drug therapy; Z11.52 Encounter for screening for COVID-19
CPT/HCPCS: 0241U; 36000; 36415; 70450; 80048; 80053; 81001; 82150; 83605; 83690; 83880; 84484; 85025; 93005; 96374; 99285; 99291; J2405

== ENCOUNTER 2024-03-01 13:22 | Emergency (ER) | payer MEDICARE, OTHER ==
--- NOTE | 2024-03-01 13:26 | ERPHSYRPT ---
- History of Present Illness Time Seen by Provider: 03/01/24 13:25 Source: patient, family Exam Limitations: no limitations Physician History: This is an 78-year-old white male patient of Dr. Gill who arrives by private vehicle secondary to having episodes of dizziness primarily in the mornings in the last 2 to 3 days. Patient states the changes that have been made in his medication list include metoprolol 100 mg orally twice a day instead of just once a day. In addition he has been taking some melatonin at night the last 2-3 nights because of insomnia. The melatonin is helping him. Patient has no headaches. Patient has no chest pain. Patient has no abdominal pain. Patient has no cough. Patient has no shortness of breath. He has not had fevers. He denies nausea vomiting diarrhea symptoms. Patient did allow us to perform a twelve-lead EKG and obtain a urine. His systolic blood pressure is 192 mmHg on arrival to emergency department. During my discussion with him, the systolic blood pressure decreased 188 mmHg. He is in no distress. Timing/Duration: day(s) (2 to 3 days) Character of Deficits: none Deficits: no difficulties Baseline/Normal Cognition: alert oriented x 3 Current Cognition: alert oriented x 3 Baseline Gait: walks w/o assistance Associated Symptoms: other Allergies/Adverse Reactions: No Known Drug Allergies Allergy (Verified 03/01/24 13:26) Home Medications: Aspirin EC 81 mg [Ecotrin 81 mg] 81 mg PO DAILY 05/01/20 [History] Metoprolol Succinate 50 mg [Toprol Xl 50 MG] 100 mg PO BID 05/01/20 [History] Simvastatin 10 mg [Zocor 10MG] 10 mg PO BID 05/01/20 [History] Ferrous Sulfate [Iron] 325 mg PO DAILY 08/20/23 [History] Naproxen 500 mg [Naprosyn 500 MG] 500 mg PO BID PRN 08/20/23 [History] Donepezil HCl 10 mg [Aricept 10 MG] 10 mg PO HS 03/01/24 [History] Losartan Potassium 100 mg PO DAILY 03/01/24 [History] Melatonin 10 mg PO HS 03/01/24 [History] Hx Tetanus, Diphtheria Vaccination/Date Given: Yes Hx Influenza Vaccination/Date Given: Yes Hx Pneumococcal Vaccination/Date Given: Yes Travel Risk - International Travel Have you traveled outside of the country in past 3 weeks: No - Emerging Infectious Disease Are you exhibiting symptoms associated with any current EIDs: Yes Symptoms: Headaches/Body Aches/ - Review of Systems Constitutional: No Symptoms Eyes: No Symptoms Ears, Nose, & Throat: No Symptoms Respiratory: No Symptoms Cardiac: No Symptoms Abdominal/Gastrointestinal: No Symptoms Genitourinary Symptoms: No Symptoms Musculoskeletal: No Symptoms Skin: No Symptoms Neurological: Dizziness (Intermittent morning dizziness. None at this time) Psychological: No Symptoms Endocrine: No Symptoms Hematologic/Lymphatic: No Symptoms Immunological/Allergic: No Symptoms All Other Systems: Reviewed and Negative - Past Medical History Pertinent Past Medical History: Yes Neurological History: No Pertinent History ENT History: No Pertinent History Cardiac History: High Cholesterol, Hypertension Respiratory History: No Pertinent History Endocrine Medical History: No Pertinent History Musculoskeletal History: No Pertinent History GI Medical History: GERD, Hernia History: No Pertinent History Psycho-Social History: No Pertinent History Male Reproductive Disorders: No Pertinent History Other Medical History: skin cancer on the top of one of ears and 5 spots removed on face - Past Surgical History Past Surgical History: Yes Neuro Surgical History: No Pertinent History Cardiac: No Pertinent History Respiratory: No Pertinent History Gastrointestinal: Hernia Repair Genitourinary: No Pertinent History Musculoskeletal: No Pertinent History Male Surgical History: No Pertinent History Other Surgical History: skin cancer removed from face - Social History Smoking Status: Never smoker Exposure to second hand smoke: No Drug Use: none Patient Lives Alone: Yes - Social Determinants of Health Will the patient participate in the screening: Yes Do you worry about a steady place to live?: No In the past 12 months,have you had to go without utilities?: No Transportation Issues: No Has anyone in your support network made you feel unsafe?: No Have you or anyone in your house had to go without enough: No - Nursing Vital Signs Nursing Vital Signs: Initial Vital Signs Pulse Rate 57 L 03/01/24 13:30 Respiratory Rate 21 03/01/24 13:30 Blood Pressure 192/82 03/01/24 13:30 Pain Scale Pain Intensity 3 - [place] Coma Scale Best Eye Response ([place]): (4) open spontaneously Best Verbal Response ([place]): (5) oriented Best Motor Response ([place]): (6) obeys commands [place] Total: 15 - Physical Exam General Appearance: no apparent distress, alert, anxiety Eye Exam: bilateral eye: normal inspection, PERRL, EOMI Ears, Nose, Throat Exam: normal ENT inspection, moist mucous membranes Neck Exam: normal inspection, non-tender, supple, full range of motion Respiratory: normal breath sounds, lungs clear, airway intact, No chest tenderness, No respiratory distress Cardiovascular: regular rate/rhythm, normal heart sounds, normal peripheral pulses Gastrointestinal: soft, normal bowel sounds, No tenderness Rectal Exam: not done Back Exam: normal inspection, normal range of motion, No CVA tenderness, No vertebral tenderness Extremity Exam: normal inspection, normal range of motion, pelvis stable Mental Status: alert, oriented x 3, 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 The QTc is 426) Ordered Tests: Active Orders 24 hr Category Date Time Status UA W/RFX UR CULTURE Stat Lab 03/01/24 13:52 Completed Lab/Rad Data: Laboratory Results 03/01/24 Range/Units 13:52 Urine Color Yellow (Yellow) Urine Appearance Clear (Clear) Urine pH 7.5 (4.6-8.0) Ur Specific [place] 1.015 (1.005-1.030) Urine Protein Negative (Negative) Urine Glucose (UA) Negative (Negative) mg/dL Urine Ketones Negative (Negative) Urine Blood Negative (Negative) Urine Nitrite Negative (Negative) Urine Bilirubin Negative (Negative) Urine Urobilinogen 0.2 (0.2) mg/dL Ur Leukocyte Esterase Negative (Negative) U Hyaline Cast (Auto) NONE SEEN (0-2) /LPF Urine Microscopic RBC 3-5 (0-5) /HPF Urine Microscopic WBC 0-2 (0-5) /HPF Ur Epithelial Cells None Seen (None Seen) /HPF Urine Bacteria None Seen (None Seen) /HPF Urine Culture Reflexed NO (NO) - Progress Progress: improved Progress Note: 03/01/24 14:05 My medical decision making and the assignment of moderate complexity to this patient's medical issue today is based on review of the patient's medication list, review of the patient's drug allergy list, history present illness and physical findings on examination. My plan for this patient's workup includes placement of intravenous line, twelve-lead EKG, BNP, troponin level, urinalysis, CBC, CMP, magnesium level, viral swabs and CT scan of the head without contrast. I explained in detail the rationale/need for this type of testing in the emergency room setting. Patient has provided us with urine to perform a urinalysis as well as allow us to do a twelve-lead EKG. However, he declines any other testing. He will sign a refusal of treatment/testing of the remainder of the studies. He stated that he is primarily here because he is a little anxious but that anxiety has now subsided. 03/01/24 14:25 I reviewed the patient's urinalysis. There is no evidence of any acute or emergent medical issue based on his urinalysis results. Patient twelve-lead EKG also shows no acute ischemia. Patient has signed refusal of treatment/further testing. Medical Desision Making - Diagnostic Testing Diagnostic test were ordered, analyzed, and reviewed by me: Yes - Risk of complications Low Risk: Low risk of morbidity from additional dx testing or treatment - Departure Departure Disposition: Home Clinical Impression: Dizziness, Hypertension Condition: Stable Critical Care Time: No Referrals: OSVALDO GILL MD [Primary Care Provider] - Follow up/PCP as directed Instructions: [place] (DC) Additional Instructions: Call your primary care provider today, 03/01/2024, to make arrangements for follow-up appointment for further evaluation and management. Take all your medications as prescribed.
[2024-03-01 14:08] LABS: Appearance Clear (Clear); Bacteria None Seen /HPF (None Seen); Bilirubin Negative (Negative); Blood Negative (Negative); Epithelial Cells None Seen /HPF (None Seen); Glucose, Urine Negative (Negative); Hyaline Casts NONE SEEN /LPF (0-2); Ketones Negative (Negative); Leukocyte Esterase Negative (Negative); Nitrite Negative (Negative); Ph 7.5 (4.6-8.0); Protein,Urine Dip Negative (Negative); Specific Gravity 1.015 (1.005-1.030); Urobilinogen 0.2 mg/dL (0.2); WBC 0-2 /HPF (0-5)
[2024-03-01 14:22] VITALS: BP 173/80; PULSE 56; RESP 17; O2SAT 97
== END 2024-03-01 14:25 | disposition home or self-care (01) ==
LOC: ED 13:22
DX: R42 Dizziness and giddiness (principal); I10 Essential (primary) hypertension; E78.5 Hyperlipidemia, unspecified; Z79.899 Other long term (current) drug therapy
CPT/HCPCS: 81001; 99283